=== PATIENT | female | born 1935 | race Caucasian/White ===

== ENCOUNTER → 2017-03-12 17:04 | Outpatient (CLI) | payer MEDICARE, OTHER ==
[2013-08-27 11:19] VITALS: BMI 28.5
[~2017-03-12 17:04] MED LIST: ADVAIR 250/501 DISK INH; COMBIVENT RESPIM4 GM INH; NORVASC5 MG PO; PERCOCET 5-3251 TAB PO; PERISOL437 ML MM; SYNTHROID75 MCG PO; VITAMIN C WIT1000 MG; [UNRECOGNIZED DRUG - OTHER]
== END | disposition home or self-care (01) ==
LOC: D.MAMMO 13:15
DX: Z12.31 Encounter for screening mammogram for malignant neoplasm of breast (principal)

== ENCOUNTER → 2017-08-09 18:08 | Outpatient (CLI) | payer MEDICARE, OTHER ==
[2013-08-27 11:19] VITALS: BMI 28.5
== END | disposition home or self-care (01) ==
LOC: D.MAMMO 16:15
DX: Z12.31 Encounter for screening mammogram for malignant neoplasm of breast (principal); E55.9 Vitamin D deficiency, unspecified; I10 Essential (primary) hypertension

== ENCOUNTER → 2017-09-06 09:28 | Outpatient (CLI) | payer MEDICARE, OTHER ==
[2013-08-27 11:19] VITALS: BMI 28.5
== END | disposition home or self-care (01) ==
LOC: D.RT 09-04 10:00
DX: J44.9 Chronic obstructive pulmonary disease, unspecified (principal)

== ENCOUNTER → 2018-08-15 07:11 | Outpatient (CLI) | payer MEDICARE, OTHER ==
[2013-08-27 11:19] VITALS: BMI 28.5
== END | disposition home or self-care (01) ==
LOC: D.RAD 07:11
PROVIDERS: ATTEND Internal Medicine Pulmonary Disease
DX: S22.31XA Fracture of one rib, right side, initial encounter for closed fracture (principal)

== ENCOUNTER → 2020-08-16 10:47 | Outpatient (CLI) | payer MEDICARE, OTHER ==
[2013-08-27 11:19] VITALS: BMI 28.5
== END | disposition home or self-care (01) ==
LOC: D.LAB 10:47
PROVIDERS: ATTEND Internal Medicine Pulmonary Disease
DX: Z11.52 Encounter for screening for COVID-19 (principal)

== ENCOUNTER → 2020-08-20 09:57 | Outpatient (CLI) | payer MEDICARE, OTHER ==
[2013-08-27 11:19] VITALS: BMI 28.5
== END | disposition home or self-care (01) ==
LOC: D.RT 09:57
PROVIDERS: ATTEND Internal Medicine Pulmonary Disease
DX: J44.9 Chronic obstructive pulmonary disease, unspecified (principal)